=== PATIENT | female | born 1995 | race Caucasian/White ===

== ENCOUNTER 2018-09-06 08:08 | Day surgery (SDC) | payer OTHER ==
[2018-09-06] MEDS ORDERED: CEFAZOLIN 2 GM/50 ML (PMX) 50 ML IVPB (09:00)
[2018-09-06 09:13] LABS: ADD MAN DIFF? NO
[2018-09-06 09:16] LABS: BASOPHILS % 0.5 % (0.0-2.0); EOSINOPHILS # 0.1 10^3/ul (0.0-0.5); EOSINOPHILS % 0.9 % (0.0-7.0); HEMATOCRIT 41.8 % (37.0-47.0); HEMOGLOBIN 13.2 g/dl (12.0-16.0); MEAN CORPUSCULAR HEMOGLOBIN 26.2 pg (29.0-33.0); MEAN CORPUSCULAR HGB CONC 31.6 g/dl (32.0-37.0); MEAN CORPUSCULAR VOLUME 82.9 fl (72.0-104.0); MEAN PLATELET VOLUME 10.9 fl (7.4-10.4); MONOCYTE # 0.5 10^3/ul (0.3-0.9); MONOCYTES % 5.9 % (0.0-13.0); NEUTROPHIL # 5.9 10^3/ul (1.6-7.5); NEUTROPHILS % 69.5 % (30.0-74.0); PLATELET COUNT 310 10^3/UL (140-415); RED BLOOD COUNT 5.04 10^6/ul (4.20-5.40); RED CELL DISTRIBUTION WIDTH 13.5 % (11.5-14.5)
[2018-09-06 09:16] LABS: WHITE BLOOD COUNT 8.5 10^3/ul (4.8-10.8)
[2018-09-06] MEDS: SOD CHLORIDE 0.9% 1,000 ML IV (09:23)
[2018-09-06 09:36] LABS: INR 0.92; PARTIAL THROMBOPLASTIN TIME 29.9 Sec (23.0-35.0); PROTIME 12.5 Sec (11.9-14.9)
[2018-09-06 09:37] LABS: ALANINE AMINOTRANSFERASE 18 IU/L (13-69); ALBUMIN 4.4 g/dl (3.3-4.9); ALBUMIN/GLOBULIN RATIO 1.37; ALKALINE PHOSPHATASE 85 IU/L (42-121); ANION GAP 10 (5-13); ASPARTATE AMINO TRANSFERASE 19 IU/L (15-46); BILIRUBIN,INDIRECT 0.6 mg/dl (0-1.1); BILIRUBIN,TOTAL 0.6 mg/dl (0.2-1.3); BLOOD UREA NITROGEN 15 mg/dl (7-20); CALCIUM 9.5 mg/dl (8.4-10.2); CARBON DIOXIDE 25 mmol/L (21-31); CHLORIDE 108 mmol/L (97-110); Estimated GFR > 60 mL/min (>60); GLUCOSE 95 mg/dl (70-220); POTASSIUM 3.9 mmol/L (3.5-5.1); SODIUM 143 mmol/L (135-144); TOTAL PROTEIN 7.6 g/dl (6.1-8.1)
[2018-09-06] MEDS ORDERED: ROCURONIUM 50 MG INJ (10:14)
[2018-09-06] MEDS ORDERED: PROPOFOL 100 ML (10:14)
[2018-09-06] MEDS ORDERED: LIDOCAINE 2% (SDV) 5 ML INJ (10:18)
[2018-09-06] MEDS ORDERED: CEFAZOLIN 1 GM INJ (10:36)
[2018-09-06] MEDS: BUPIVACAINE 0.25%/EPI (SDV) 30 ML INJ (10:50)
[2018-09-06] MEDS: LIDOCAINE 1% (MPF) 30 ML INJ (10:50)
[2018-09-06] MEDS ORDERED: NEOSTIGMINE 3 MG/3 ML SYRINGE (11:28)
[2018-09-06] MEDS ORDERED: GLYCOPYRROLATE 0.4 MG INJ (11:28)
[2018-09-06] MEDS ORDERED: DEXAMETHASONE 4 MG/ML 5 ML INJ (11:33)
[2018-09-06] MEDS ORDERED: ONDANSETRON 4 MG INJ (11:33)
[2018-09-06] MEDS ORDERED: HYDROmorphONE 1 MG/5 ML IV SYRINGE IV ×3 (12:00)
[2018-09-06] MEDS ORDERED: OXYCODONE/ACETAMINOPHEN (5/325) TAB PO ×2 (12:00)
[2018-09-06] MEDS ORDERED: METOCLOPRAMIDE 10 MG INJ IV (12:00)
[2018-09-06] MEDS ORDERED: DIPHENHYDRAMINE 50 MG INJ IV (12:00)
[2018-09-06] MEDS ORDERED: LABETALOL HCL 20MG INJ IV (12:00)
[2018-09-06] MEDS ORDERED: KETOROLAC 30 MG INJ IV (12:00)
[2018-09-06] MEDS ORDERED: ALBUTEROL 0.083% (NEB) 2.5 MG/3 ML AMP HHN (12:00)
[2018-09-06] MEDS ORDERED: EPHEDrine 25 MG/5 ML SYG IV (12:00)
[2018-09-06] MEDS ORDERED: ONDANSETRON 4 MG INJ IV (12:00)
[2018-09-06] MEDS ORDERED: MIDAZOLAM 1 MG/ML 2 ML INJ IV (12:00)
[2018-09-06] MEDS ORDERED: FENTAnyl 50 MCG/ML VIAL IV ×3 (12:00)
[2018-09-06] MEDS ORDERED: MEPERIDINE 25 MG INJ IV (12:00)
[2018-09-06] MEDS ORDERED: hydrALAzine 20 MG INJ IV (12:00)
== END 2018-09-06 13:55 | disposition home or self-care (01) ==
LOC: SDS 08:08
DX: L05.91 Pilonidal cyst without abscess (principal)
CPT/HCPCS: 11772; 80053; 84703; 85025; 85610; 85730; 88304